=== PATIENT | male | born 1975 | race Caucasian/White ===

== ENCOUNTER → 2017-09-04 | Outpatient (CLI) | payer BC | END | disposition home or self-care (01) | LOC: LAB.O 14:47 | PROVIDERS: ATTEND Nurse Practitioner Family | DX: L03.319 Cellulitis of trunk, unspecified (principal) ==

== ENCOUNTER 2018-02-07 23:19 | Emergency (ER) | payer BC ==
[2018-02-07] MEDS ORDERED: SODIUM CHLORIDE 0.9% 1000ML 1,000 ML IVS ONE (23:33)
[2018-02-07] MEDS ORDERED: ONDANSETRON INJ 4 MG/2 ML VIAL IV ONE ×2 (23:33→23:34)
[2018-02-07] MEDS ORDERED: KETOROLAC TROMETHAMINE INJ 30 MG/ML VIAL IV ONE ×2 (23:33→23:34)
[2018-02-07] MEDS ORDERED: SODIUM CHLORIDE 0.9% 1000ML 1,000 ML ONE (23:34)
[2018-02-07] MEDS ORDERED: KETOROLAC TROMETHAMINE INJ 30 MG/ML VIAL ONE (23:35)
[2018-02-07] MEDS ORDERED: ONDANSETRON INJ 4 MG/2 ML VIAL ONE (23:35)
[2018-02-07 23:38] VITALS: O2SAT 97
--- NOTE | 2018-02-07 23:39 | ED.PDOC ---
History of Present Illness - General Chief Complaint: Problem Stated Complaint: Kidney Stones Time Seen by Provider: 02/07/18 23:27 Source: patient Exam Limitations: no limitations - History of Present Illness Initial Comments: ACUTE ONSET OF RIGHT FLANK PAIN ASSOCIATED WITH NAUSEA AND RADIATION TO THE RIGHT TESTICLE. HAS A HX OF RENAL COLIC. DENIES ANY FEVER. Severity: severe Improving Factors: nothing Worsening Factors: nothing Allergies/Adverse Reactions: Allergies Sumatriptan [From Imitrex] Allergy (Verified 02/07/18 23:33) Home Medications: Ambulatory Orders Ketorolac Tromethamine 10 mg PO Q8HRS #15 tab 02/08/18 Tamsulosin HCl [Flomax] 0.4 mg PO DAILY #7 cap 02/08/18 Tramadol HCl 50 mg PO Q6HRS #20 tab 02/08/18 Review of Systems - Review of Systems Constitutional: States: no symptoms reported EENTM: States: no symptoms reported Respiratory: States: no symptoms reported Cardiology: States: no symptoms reported Gastrointestinal/Abdominal: States: abdominal pain Genitourinary: States: see HPI, pain Musculoskeletal: States: no symptoms reported Skin: States: no symptoms reported Neurological: States: no symptoms reported Endocrine: States: no symptoms reported Hematologic/Lymphatic: States: no symptoms reported Past Medical History (General) - Patient Medical History Hx Hypertension: Yes Hx MRSA: Yes - Shoulder 2016 MRSA Source:: Wound Family Medical History - Family History Mother Family History: Unknown Physical Exam - Physical Exam General Appearance: Alert, Anxious, Obvious distress, Well Developed, Well Groomed, Well Nourished Eye Exam: bilateral normal Ears, Nose, Throat: hearing grossly normal, normal ENT inspection, normal pharynx Neck: non-tender, full range of motion, supple, normal inspection Respiratory: chest non-tender, lungs clear, normal breath sounds, no respiratory distress, no accessory muscle use Cardiovascular/Chest: normal peripheral pulses, regular rate, rhythm, no edema, no gallop, no JVD, no murmur Peripheral Pulses: radial,right: 2+, radial,left: 2+ Gastrointestinal/Abdominal: normal bowel sounds, non tender, soft, no organomegaly, no pulsatile mass Rectal Exam: deferred Back Exam: CVA tenderness (R) Extremity: normal range of motion, non-tender, normal inspection, no pedal edema Neurologic: no motor/sensory deficits, alert, normal mood/affect, oriented x 3 Skin Exam: normal color Lymphatic: no adenopathy Progress - Results/Orders Results/Orders: CREATININE 1.35 CT ABDOMEN: 4 MM STONE AT THE RIGHT UPJ. Departure - Departure Clinical Impression: Renal colic on right side Time of Disposition: 00:37 Disposition: Discharge to Home or Self Care Condition: Good Departure Forms: ED Discharge - Pt. Copy, Patient Portal Self Enrollment Instructions: DI for Kidney Stones Diet: resume usual diet Referrals: DIDIER PARIS IV PEAR PICKER [Primary Care Provider] - 1-2 Weeks Prescriptions: Tramadol HCl 50 mg PO Q6HRS #20 tab Ketorolac Tromethamine 10 mg PO Q8HRS #15 tab Tamsulosin HCl [Flomax] 0.4 mg PO DAILY #7 cap Home Medications: Ambulatory Orders Ketorolac Tromethamine 10 mg PO Q8HRS #15 tab 02/08/18 Tamsulosin HCl [Flomax] 0.4 mg PO DAILY #7 cap 02/08/18 Tramadol HCl 50 mg PO Q6HRS #20 tab 02/08/18
[2018-02-07] MEDS ORDERED: MORPHINE SULFATE INJ 10 MG/ML VIAL IV ONE (23:52)
--- NOTE | 2018-02-08 00:16 | CT ---
EXAM DESCRIPTION: Abdoment/Pelvis w/o Contrast CLINICAL HISTORY:42 years Male, RIGHT FLANK PAIN-STONE STUDY Comparison: January 05, 2018 TECHNIQUE: Contiguous axial images of the abdomen and pelvis were obtained followed by reconstruction images. This exam was performed according to our departmental dose-optimization program, which includes automated exposure control, adjustment of the mA and/or kV according to patient size and/or use of iterative reconstruction technique. FINDINGS: Lung bases: Lung bases are clear. Heart: Visualized heart is within normal limits in size. Liver:Diffuse low-attenuation throughout the liver consistent with hepatocellular disease/fatty infiltration. No focal liver lesion seen. Gallbladder:Unremarkable. No gallstones. No gallbladder wall thickening or pericholecystic fluid. Spleen:Unremarkable Pancreas: Pancreas is unremarkable. Adrenal glands:Within normal limits. Kidneys/ureters: Moderate right hydronephrosis and hydroureter. 4 mm calculus in the right junction. Associated perinephric and periureteral inflammatory stranding. No additional right renal calculi. Nonobstructive left nephrolithiasis. Left hydronephrosis and hydroureter and distal left ureteral calculus have resolved.. Bladder:Unremarkable. Pelvic organs: No acute abnormality Vascular structures: within normal limits Peritoneum: No free fluid. Lymph nodes: No abnormal lymph nodes. Stomach/small bowel/colon: Stomach is unremarkable. Small bowel is unremarkable. Colon is unremarkable. Appendix: No evidence of appendicitis. Bones: No acute osseous abnormality. Soft tissues: Small fat containing umbilical hernia.. IMPRESSION: Obstructive right UPJ calculus measuring approximately 4 mm. Electronically signed by: Sebastian Brown DO 02/08/2018 12:15 AM CDT
[2018-02-08] MEDS: SODIUM CHLORIDE 0.9% 1000ML 1,000 ML IVS ONE ×2 (00:27→00:50)
[2018-02-08 00:54] VITALS: BP 158/98; TEMP 97.9
== END 2018-02-08 00:53 | disposition home or self-care (01) ==
LOC: ER 23:19
DX: N20.0 Calculus of kidney (principal); I10 Essential (primary) hypertension; Z79.899 Other long term (current) drug therapy; Z88.8 Allergy status to other drugs, medicaments and biological substances
CPT/HCPCS: 74176; 80048; 81001; 85025; J1885; J2270; J2405; J7030